=== PATIENT | female | born 1965 | race African-American/Black ===

== ENCOUNTER 2025-03-16 21:36 | Inpatient (IN) | payer MEDICAID, OTHER ==
[~2025-03-16] VITALS: Ht 170.2 cm; Wt 76.7 kg
[2025-03-16 22:06] VITALS: BP 152/81; TEMP 97.6; O2SAT 100
[2025-03-17] VITALS: BP 161/82; TEMP 97.7; O2SAT 99
[2025-03-17 04:00] VITALS: BP 169/90; TEMP 97.7; O2SAT 100
[2025-03-17] MEDS: ACETAMINOPHEN 325 MG TABLET PO PRN (05:26)
[2025-03-17 06:41] LABS: PLATELET COUNT (AUTO) 276 K/uL (150-450); RED BLOOD CELL COUNT(AUTO) 4.28 MIL/uL (4.0-5.2); RED CELL DISTRIBUTION WIDTH 14.4 % (11.5-15.0); WHITE BLOOD COUNT (AUTO) 5.9 K/uL (4.3-11.0)
[2025-03-17 06:42] LABS: CALCIUM, SERUM 9.2 mg/dL (8.5-10.1); CREATININE 1.1 mg/dL (0.6-1.3); SODIUM SERUM 144.0 mmol/L (136-145); UREA NITROGEN, BLOOD 8.0 mg/dL (7-18)
[2025-03-17 06:42] LABS: APPEARANCE,URINE CLEAR (CLEAR); BLOOD, URINE NEGATIVE Ery/uL (NEGATIVE); LEUKOCYTE ESTERASE ,URINE NEGATIVE (NEGATIVE); NITRITE, URINE NEGATIVE (NEGATIVE); UGLUCOSE NEGATIVE (NEGATIVE)
[2025-03-17 06:43] LABS: INR 0.99 (0.91-1.10)
[2025-03-17 06:52] LABS: LDL 113.0 mg/dL (0-99)
[2025-03-17 08:00] VITALS: BP 163/89; TEMP 98.1; O2SAT 100
[2025-03-17] MEDS: ASPIRIN EC 81 MG TABLET.DR PO SCH (08:12)
[2025-03-17] MEDS: CLOPIDOGREL BISULFATE 75 MG TABLET PO SCH (08:12)
[2025-03-17] MEDS: PANTOPRAZOLE 40 MG TABLET.DR PO SCH (08:12)
[2025-03-17] MEDS: hydrALAZINE HCL IV 20 MG VIAL IV PRN (08:34)
[2025-03-17] MEDS ORDERED: LORAZEPAM INJ 2 MG/ML VIAL IV ONE ×2 (09:30→13:00)
[2025-03-17] MEDS ORDERED: LORAZEPAM 1 MG TABLET PO ONE (10:30)
[2025-03-17] MEDS: GABAPENTIN 300 MG CAPSULE PO SCH (10:42)
[2025-03-17] MEDS: ACETAMINOPHEN W/ CODEINE#3 1 EA TABLET PO PRN (10:56)
[2025-03-17 12:00] VITALS: BP 177/89; TEMP 97.6; O2SAT 99
[2025-03-17 16:00] VITALS: BP 133/78; TEMP 98.1; O2SAT 99
[2025-03-17 20:00] VITALS: BP 160/87; TEMP 98.8; O2SAT 100
[2025-03-17] MEDS: ATORVASTATIN 40 MG TABLET PO SCH (21:20)
[2025-03-18] VITALS: BP 157/82; TEMP 98.8; O2SAT 98
[2025-03-18 04:00] VITALS: BP 134/86; TEMP 97.9; O2SAT 100
[2025-03-18 06:35] LABS: PLATELET COUNT (AUTO) 279 K/uL (150-450); RED BLOOD CELL COUNT(AUTO) 4.35 MIL/uL (4.0-5.2); RED CELL DISTRIBUTION WIDTH 14.0 % (11.5-15.0); WHITE BLOOD COUNT (AUTO) 6.1 K/uL (4.3-11.0)
[2025-03-18 06:44] LABS: CALCIUM, SERUM 9.1 mg/dL (8.5-10.1); CREATININE 1.2 mg/dL (0.6-1.3); SODIUM SERUM 139.0 mmol/L (136-145); UREA NITROGEN, BLOOD 8.0 mg/dL (7-18)
[2025-03-18 08:00] VITALS: BP_SYST 101; BP_SYST 168; BP_DIAS 78; BP_DIAS 92; TEMP 98.4; O2SAT 99
[2025-03-18 12:00] VITALS: BP 167/97; TEMP 98.8; O2SAT 98
[2025-03-18] MEDS: LORAZEPAM INJ 2 MG/ML VIAL IV ONE (14:18)
[2025-03-18] MEDS: AMLODIPINE BESYLATE 5 MG TABLET PO SCH (15:11)
[2025-03-18 16:00] VITALS: BP 155/89; TEMP 98.4; O2SAT 99
[2025-03-18 20:00] VITALS: BP 151/97; TEMP 99; O2SAT 99
[2025-03-19] VITALS: BP 153/94; TEMP 99.5; O2SAT 99
[2025-03-19 04:00] VITALS: BP 127/90; TEMP 99.1; O2SAT 99
[2025-03-19 05:53] LABS: PLATELET COUNT (AUTO) 253 K/uL (150-450); RED BLOOD CELL COUNT(AUTO) 4.20 MIL/uL (4.0-5.2); RED CELL DISTRIBUTION WIDTH 14.1 % (11.5-15.0); WHITE BLOOD COUNT (AUTO) 5.3 K/uL (4.3-11.0)
[2025-03-19 05:59] LABS: CALCIUM, SERUM 8.7 mg/dL (8.5-10.1); CREATININE 1.1 mg/dL (0.6-1.3); SODIUM SERUM 142.0 mmol/L (136-145); UREA NITROGEN, BLOOD 13.0 mg/dL (7-18)
[2025-03-19 08:00] VITALS: BP 136/76; TEMP 97.9; O2SAT 99
[2025-03-19] MEDS ORDERED: AMLO-212 PO ×2 (10:51)
[2025-03-19] MEDS ORDERED: ASPI-1420 PO (10:51)
[2025-03-19] MEDS ORDERED: Aspirin Ec PO (10:51)
[2025-03-19] MEDS ORDERED: ATOR80TA PO (10:51)
[2025-03-19] MEDS ORDERED: CLOP75TA15 PO ×2 (10:51)
[2025-03-19] MEDS ORDERED: ATOR40TA PO (10:51)
[2025-03-19 12:00] VITALS: BP 118/64; TEMP 97.8
== END 2025-03-19 15:26 | disposition home or self-care (01) | DRG 69 ==
LOC: TELE1 21:37 → MEDSG1 03-19 09:30
PROVIDERS: ADMIT Registered Nurse Psychiatric/Mental Health; ATTEND Nurse Practitioner Family
DX: G45.9 Transient cerebral ischemic attack, unspecified (principal); C18.9 Malignant neoplasm of colon, unspecified; I69.354 Hemiplegia and hemiparesis following cerebral infarction affecting left non-dominant side; R29.700 NIHSS score 0; E78.5 Hyperlipidemia, unspecified; I10 Essential (primary) hypertension; Z79.02 Long term (current) use of antithrombotics/antiplatelets; F40.240 Claustrophobia; Z79.899 Other long term (current) drug therapy; Z79.82 Long term (current) use of aspirin; Z91.199 Patient's noncompliance with other medical treatment and regimen due to unspecified reason; Z98.891 History of uterine scar from previous surgery; Z90.49 Acquired absence of other specified parts of digestive tract
CPT/HCPCS: 36415; 70551-TC; 80048-TC; 80061-TC; 84443-TC; 85025-TC; 85730-TC; 87081-TC; 92526; 92611; 93307-TC; 93880-TC; 97116-TC; 97530-TC; 97535-TC; G0378; J0360; J2060